=== PATIENT | female | born 1980 | race Caucasian/White ===

== ENCOUNTER 2024-07-31 20:15 | Emergency (ER) | payer OTHER, SELFPAY ==
[2024-07-31 20:18] VITALS: BP 131/87
--- NOTE | 2024-07-31 20:37 | ED.MUSCINJ ---
HPI-Injury
General
Chief Complaint: Musculo-Skeletal Complaint
Source: patient
Exam Limitations: none
Time Seen by Provider: 07/31/24 20:23
History of Present Illness-Injury
Initial Injury comments:
44-year-old [id number] female presents complaining of right hand pain swelling and ecchymosis starting tonight. She was wearing a glove and kickboxing class and was punching a bag. There is no specific 1 event that occurred but she took
her glove off and realized her hand hurt and was swollen. No prior injuries. No other complaints at this time
Past History
Past History
ED Past Medical History: None
ED Past Surgical History: None
Social History
Tobacco: Non-smoker
Phy Exam
Physical Exam
Physical Exam:
General: Well-appearing female no acute respiratory distress
Musculoskeletal exam: Right hand swollen ecchymotic and tender over the dorsal aspect of the right hand at the fourth finger MCP and fifth finger MCP joint. No significant deformity however the small finger does tend to ulnarly deviate. She is
able to abduct and adduct her fingers actively. She has full extension and flexion of all of her fingers. No malrotation.
Skin is intact without laceration
Injury Course
Orders/Labs/Results
Orders:
Orders
07/31/24 20:20
Hand, Right 3 View [CR Hand - Right Min 3 Views] Urgent
Comment:
Reason For Exam: pain
MDM/Problems Addressed
Differential Diagnosis Includes:
Right hand pain consider contusion versus fracture versus dislocation
X-rays were closely reviewed and are negative for acute fracture or dislocation. Suspect underlying contusion. Recommended ice ibuprofen and Tylenol. Stable for discharge
*Critical Care Note
Total Time (30-74mins, 75-104mins- exclusive of procedures): Not Applicable
ED Attending Note
-
Portions of this chart may have been created with voice recognition software.� Occasional wrong word or��sound alike� substitutions may have occurred due to the inherent limitations of voice recognition software.
Discharge Plan
Departure
Patient Disposition: Home (Routine Discharge)
Date of Disposition: 07/31/24
Time of Disposition: 20:40
Patient with high blood pressure during this ER visit?: No
Discharge Problem:
Contusion
Instructions: Muscle and Bone Pain (DC)
Activity Restrictions/Additional Instructions:
Rest. Elevate for swelling. Use ibuprofen or Tylenol for pain. Return if worse otherwise follow-up with your doctor if needed.
Interventions
Interventions:
*Risk Screen - Suicide Last Done: 07/31/24 20:18
*General Assessment Last Done: 07/31/24 20:18
*Neglect/Abuse Screening Last Done: 07/31/24 20:18
*ED COVID-19 Vaccine History Last Done: 07/31/24 20:18
Discharge Date and Time
Print Language: [place]
== END 2024-07-31 21:07 | disposition home or self-care (01) ==
LOC: EMR 20:15
PROVIDERS: EMERGENCY PHYSICIAN Emergency Medicine; FAMILY PHYSICIAN Internal Medicine
DX: S60.221A Contusion of right hand, initial encounter (principal); W21.89XA Striking against or struck by other sports equipment, initial encounter
CPT/HCPCS: 99283; 73130